=== PATIENT | female | born 1965 | race Caucasian/White ===

== ENCOUNTER → 2018-11-27 | Outpatient (CLI) | payer BC | END | disposition home or self-care (01) | LOC: PLD 07:59 → LAB SHORT 07:59 | DX: D48.5 Neoplasm of uncertain behavior of skin (principal) | CPT/HCPCS: 88305 ==

== ENCOUNTER 2019-01-26 08:35 | Day surgery (SDC) | payer BC ==
[~2019-01-26] VITALS: Ht 157.5 cm; Wt 119.6 kg
[~2019-01-26 08:35] MED LIST: GLIP2.5ER PO; LISI20 PO; LO-DOSE ASPIRIN81 MG PO; PRAVASTATIN SOD10 MG PO; TRULICITY0.75 MG/0. SC
[2019-01-26] MEDS ORDERED: Norco 5-325 Ta1 EACH PO (09:48)
--- NOTE | 2019-01-26 12:41 | NUR ---
01/26/19 1241 Mehnaz Saavedra assumed care of pt from [facility] [place].N[facility]. PT STABLE AND MOVED TO [facility]
--- NOTE | 2019-01-26 13:50 | NUR ---
01/26/19 1350 Mehnaz Saavedra DC'Virgie VIA WC TO CAR W/SBA X1 [facility] [place]. PT HAD NO PAIN AND NAUSEA WAS RESOLVED. TOLERATED PO FLUIDS WELL. REUSABLE ICE PACK GIVEN WITH INSTRUCTIONS FOR USE. HAS F/U SCHEDULED AND COPIES OF ALL INSTRUCTIONS WERE GIVEN. RX FOR NORCO W/INSTRUCTIONS FOR USE
== END 2019-01-26 13:42 | disposition home or self-care (01) ==
LOC: ORSCSDS 08:35
PROVIDERS: Orthopaedic Surgery
PROC: 01N50ZZ Release Median Nerve, Open Approach (ICD-10-PCS; principal; 2019-01-26 10:30)
PROC: 01N40ZZ Release Ulnar Nerve, Open Approach (ICD-10-PCS; principal; 2019-01-26 10:30)
DX: G56.22 Lesion of ulnar nerve, left upper limb (principal); G56.02 Carpal tunnel syndrome, left upper limb; I10 Essential (primary) hypertension; G47.33 Obstructive sleep apnea (adult) (pediatric); E11.40 Type 2 diabetes mellitus with diabetic neuropathy, unspecified; E66.01 Morbid (severe) obesity due to excess calories; Z68.42 Body mass index [BMI] 45.0-49.9, adult; Z79.899 Other long term (current) drug therapy
CPT/HCPCS: 82947; J0690; J1100; J1885; J2250; J2405; J2704; J3010

== ENCOUNTER 2019-07-20 09:09 | Day surgery (SDC) | payer BC ==
[~2019-07-20] VITALS: Ht 157.5 cm; Wt 121.8 kg
[~2019-07-20 09:09] MED LIST changes: +INVOKANA300 MG PO; +Norco 5-325 Ta1 EACH PO
--- NOTE | 2019-07-20 09:38 | NUR ---
07/20/19 0938 Dmitriy Irving NOTIFIED PT IN WAITING ROOM. THAT I AM WAITING FOR A ROOM, WILL BRING HER BACK TO [facility] OP SOON ONE IS AVAILABLE. PT STATES AN UNDERSTANDING.
--- NOTE | 2019-07-20 12:12 | NUR ---
07/20/19 1212 Wendy Burns PT. ABLE TO FEEL TOUCH TO ALL FINGERS ON RIGHT HAND. PT. ABLE TO MOVE RIGHT THUMB. PER MAKE SURE THAT PT. MOVES HER RIGHT THUMB. PT. VERBALIZES SHARP PAIN TO RIGHT THUMB AREA RATING A "4" & TOLERABLE. PT. EATING CRACKERS & DRINKING WATER. HAND ELEVATED UP ON PILLOW. ICE TO RIGHT HAND. NOT IN WAITING ROOM, WILL CONTINUE TO CHECK. CALL LIGHT IS WITHIN REACH.
== END 2019-07-20 12:45 | disposition home or self-care (01) ==
LOC: ORSCSDS 09:09
PROVIDERS: Orthopaedic Surgery
PROC: 01N50ZZ Release Median Nerve, Open Approach (ICD-10-PCS; principal; 2019-07-20 10:45)
PROC: 0LN70ZZ Release Right Hand Tendon, Open Approach (ICD-10-PCS; principal; 2019-07-20 10:45)
DX: G56.01 Carpal tunnel syndrome, right upper limb (principal); M65.311 Trigger thumb, right thumb; I10 Essential (primary) hypertension; E11.9 Type 2 diabetes mellitus without complications; G47.33 Obstructive sleep apnea (adult) (pediatric); Z79.899 Other long term (current) drug therapy; E66.01 Morbid (severe) obesity due to excess calories; Z68.42 Body mass index [BMI] 45.0-49.9, adult
CPT/HCPCS: 82947; J0690; J2250; J2704; J3010; J7120

== ENCOUNTER → 2020-10-20 | Outpatient (CLI) | payer BC | END | disposition home or self-care (01) | LOC: LAB SHORT 16:22 | PROVIDERS: Family Medicine | DX: M54.9 Dorsalgia, unspecified (principal); G89.29 Other chronic pain | CPT/HCPCS: G0480 ==

== ENCOUNTER → 2021-07-27 | Outpatient (CLI) | payer BC ==
[2021-07-27 20:34] LABS: Microalb/Creat Ratio UR, Rand 11.429 mg/g (0.000-30.000); Microalbumin, Random Urine 14.4 mg/L (0.000-20.000)
== END | disposition home or self-care (01) ==
LOC: LAB SHORT 18:56
PROVIDERS: Family Medicine
DX: E11.9 Type 2 diabetes mellitus without complications (principal)
CPT/HCPCS: 82043; 82570

== ENCOUNTER → 2021-11-17 | Outpatient (CLI) | payer BC ==
[2021-11-18 15:12] LABS: HPV 16 Negative (Negative); HPV 18 Negative (Negative); HPV OTHER HR TYPES Negative (Negative)
== END ==
LOC: LAB SHORT 12:00 → LAB 12:00
PROVIDERS: Obstetrics & Gynecology
DX: Z01.419 Encounter for gynecological examination (general) (routine) without abnormal findings (principal)
CPT/HCPCS: 87624; G0123

== ENCOUNTER 2023-11-16 10:18 | Emergency (ER) | payer BC, OTHER ==
[~2023-11-16] VITALS: Ht 157.5 cm; Wt 136.1 kg
[2023-11-16 10:42] LABS: BASOPHILS ABSOLUTE AUTO 0.03 K/mm3 (0.00-0.23); BASOPHILS PERCENT AUTO 0 % (0-2); EOSINOPHILS ABSOLUTE AUTO 0.06 K/mm3 (0.00-0.68); EOSINOPHILS PERCENT AUTO 1 % (0-6); Hematocrit 43.9 % (33.0-51.0); Hemoglobin 14.5 g/dL (11.5-16.0); IMMATURE GRAN ABSOLUTE AUTO 0.03 K/mm3 (0.00-0.10); IMMATURE GRAN PERCENT AUTO 0 % (0-1); LYMPHOCYTES ABSOLUTE AUTO 1.06 K/mm3 (0.84-5.20); LYMPHOCYTES PERCENT AUTO 14 % (21-46); MONOCYTES ABSOLUTE AUTO 0.43 K/mm3 (0.16-1.47); MONOCYTES PERCENT AUTO 6 % (4-13); Mean Corpuscular HGB 30.6 pg (26.0-34.0); Mean Corpuscular Volume 93 fL (80-100); Mean Platelet Volume 9.1 fL (9.1-12.4); NEUTROPHILS ABSOLUTE AUTO 6.07 K/mm3 (1.96-9.15); NEUTROPHILS PERCENT AUTO 79 % (41-73); Platelet Count 142 K/mm3 (150-400); RDW Coefficient Variation 13.1 % (11.7-14.2); RDW Standard Deviation 44.4 fL (35.1-46.3); Red Blood Cell Count 4.74 M/mm3 (3.80-5.20); White Blood Cell Count 7.68 K/mm3 (4.00-11.30)
[2023-11-16] MEDS ORDERED: PIOG15 PO (10:53)
[2023-11-16 11:04] LABS: Albumin, Blood 3.3 g/dL (3.4-5.0); Albumin/Globulin Ratio 0.9 (0.8-1.8); Bilirubin, Total 0.5 mg/dL (0.1-1.0); Bun/Creatinine Ratio 20.7 (12.0-20.0); Calcium, Blood 8.8 mg/dL (8.5-10.1); Creatinine, Blood 0.73 mg/dL (0.40-1.00); Globulin, Blood 3.5 g/dL (2.2-4.0); Potassium, Blood 4.3 mmol/L (3.5-5.5); Total Protein, Blood 6.8 g/dL (6.4-8.2)
[2023-11-16 13:03] LABS: Influenza A, PCR NEGATIVE (NEGATIVE); Influenza B, PCR NEGATIVE (NEGATIVE); Resp Syncytial Virus, PCR NEGATIVE (NEGATIVE); SARS-Cov-2 (COVID-19) PCR, MMC NEGATIVE (NEGATIVE)
[2023-11-16] MEDS ORDERED: PROM25 PO (13:27)
[2023-11-16 13:30] VITALS: BP 141/82
== END 2023-11-16 13:50 | disposition home or self-care (01) ==
LOC: ER 10:18
PROVIDERS: Emergency Medicine
DX: A08.4 Viral intestinal infection, unspecified (principal); E11.9 Type 2 diabetes mellitus without complications; Z88.5 Allergy status to narcotic agent; Z88.8 Allergy status to other drugs, medicaments and biological substances; Z79.84 Long term (current) use of oral hypoglycemic drugs; Z79.899 Other long term (current) drug therapy
CPT/HCPCS: 0241U; 80053; 82947; 83690; 84484; 85025; 93005; 93010; 96361; 96374; 99284-25; J2405; J7030

== ENCOUNTER → 2025-06-04 | Outpatient (CLI) | payer BC, OTHER ==
[~2025-06-04] MED LIST changes: +PIOG15 PO; +PROM25 PO
[2025-06-04 16:42] LABS: Creatinine, Urine Random 95.6 mg/dL (27.00-270.00); Microalb/Creat Ratio UR, Rand 16.318 mg/g (0.000-30.000); Microalbumin, Random Urine 15.6 mg/L (0.000-20.000)
== END ==
LOC: LAB 15:04 → LAB SHORT 15:04
PROVIDERS: Family Medicine
DX: E11.65 Type 2 diabetes mellitus with hyperglycemia (principal); E11.69 Type 2 diabetes mellitus with other specified complication
CPT/HCPCS: 82043; 82570